=== PATIENT | female | born 1955 | race Caucasian/White ===

== ENCOUNTER → 2017-12-25 | Outpatient (CLI) | payer MEDICARE ==
[~2017-12-25] MED LIST: ACIPHEX20 MG PO; CIMETIDINE400 MG PO; DIFLUNISAL500 MG; IOPAMIDOL 370 MG/ML 200 ML INFUS..BTL INJ ONE; LEVOTHYROXINE50 MCG PO; METOPROLOL PO; OMEPRAZOLE40 MG PO; PRISTIQ50 MG; SODIUM CHLORIDE 0.9% 50ML 50 ML ONE; SYNTHROID75 MCG PO; ULTRAM 50MG50 MG PO; VENLAFAXINE HCL75 MG PO; effexor PO
[2017-12-25 11:22] LABS: BLOOD UREA NITROGEN 17 mg/dL (7-26); BUN/CREATININE RATIO 24 (6-25); EST GLOMERULAR FILTRATION RATE > 60 ML/MIN (60-)
--- NOTE | 2017-12-25 17:28 | Diagnostic Imaging Report ---
PROCEDURE: CT ABDOMEN \T\ PELVIS W/WO CONTRAST TECHNIQUE: The abdomen and pelvis were scanned utilizing a multidetector helical scanner from the diaphragm to the lesser trochanter before and after the IV administration of 100 cc of Isovue 370 and the oral administration of water. Coronal and sagittal multiplanar reformations were obtained. COMPARISON: Patients [facility], CT, CT ABDOMEN/PELVIS WOW, 03/25/2016, 21:36. INDICATIONS: NEOPLASM OF KIDNEY FINDINGS: LOWER THORAX: Stable linear opacities in bilateral lower lobes, consistent with scarring. No pulmonary nodules. HEPATOBILIARY: Likely mild hepatic steatosis. No focal hepatic lesions. No intrahepatic biliary ductal dilatation. Stable mild dilation of the common bile duct, which measures approximately 7 mm at the eamon hepatis. No radiopaque intraluminal filling defects. Cholecystectomy clips. SPLEEN: Stable mild splenomegaly, measuring 13.6 cm in AP diameter. PANCREAS: No focal masses or ductal dilatation. ADRENALS: No adrenal nodules. KIDNEYS/URETERS: No renal or ureteral calculi, hydronephrosis, or obstruction. Stable 1.4 x 1.3 cm hypodense intracortical lesion with thin, linear and punctate peripheral calcification in the posterior interpolar left kidney, without significant enhancement (25, 28, 30, and 32 HU in precontrast, arterial, venous and delayed phases.). Stable 1.5 x 1.5 cm, mostly exophytic, hypodense lesion in the posterior superior to mid left kidney, without significant enhancement (17, 26, 22 and 21 HU on precontrast, arterial, venous and delayed phases). No solid enhancing lesions. PELVIC ORGANS/BLADDER: Bladder is unremarkable, without focal lesions. Uterus is absent. No adnexal masses. PERITONEUM / RETROPERITONEUM: No free air or fluid. LYMPH NODES: No lymphadenopathy. VESSELS: Mild atherosclerotic calcification of the distal abdominal aorta. GI TRACT: No bowel dilation or evidence of obstruction. Stable postoperative changes in the stomach. BONES AND SOFT TISSUES: No aggressive lytic lesions. Stable fusion hardware in the lower lumbosacral spine. Gluteal region. Calcified injection granulomas. Neural stimulator device in the right gluteal region. IMPRESSION: 1. stable 1.4 cm intracortical cystic lesion without significant enhancement in the posterior interpolar left kidney. This may represent a mildly proteinaceous/hemorrhagic cyst. 2. Stable 1.5 cm, mostly exophytic cyst without significant enhancement in the posterior superior to mid left kidney. 3. Likely mild hepatic steatosis. No focal lesions. 4. Stable mild dilation of the common bile duct, likely reflecting post cholecystectomy status. 5. Stable mild splenomegaly. Shmuel Maher M.D. Dictated by: Shmuel Maher M.D. on 12/25/2017 at 14:33 Electronically approved by: Shmuel Maher M.D. on 12/25/2017 at 17:33
== END ==
LOC: CT 10:44
PROVIDERS: ATTEND Urology
DX: D41.00 Neoplasm of uncertain behavior of unspecified kidney (principal)
CPT/HCPCS: 36415; 74178; 82565; 84520; Q9967

== ENCOUNTER → 2018-07-16 | Outpatient (CLI) | payer MEDICARE ==
[~2018-07-16] MED LIST changes: -IOPAMIDOL 370 MG/ML 200 ML INFUS..BTL INJ ONE; -SODIUM CHLORIDE 0.9% 50ML 50 ML ONE
--- NOTE | 2018-07-16 16:31 | Diagnostic Imaging Report ---
EXAM: Renal Ultrasound INDICATION: Renal neoplasm. COMPARISON: CT Abdomen/Pelvis 12/25/2017. TECHNIQUE: Transverse and longitudinal images of the kidneys and bladder were obtained. FINDINGS: Right Kidney: Length: Measures 12.8 x 6.0 x 6.0 cm Appearance: Normal echogenicity. Collecting system: No hydronephrosis Stones: None Cyst/Mass: None Left Kidney: Length: Measures 11.1 x 5.0 x 5.7 cm Appearance: Normal echogenicity. Collecting system: No hydronephrosis Stones: None Cyst/Mass: There are multiple left-sided anechoic, predominately simple appearing renal cysts measuring up to 1.8 cm and 1.9 cm. No evidence of solid mass. Bladder: Unremarkable in appearance. Bilateral ureteral jets are noted. IMPRESSION: No evidence of solid renal mass. Simple appearing left-sided renal cysts. Signed by: Dr. Richard Pedersen MD on 07/16/2018 4:28 PM
== END ==
LOC: US 14:37
PROVIDERS: ATTEND Urology
DX: D41.00 Neoplasm of uncertain behavior of unspecified kidney (principal)
CPT/HCPCS: 76770

== ENCOUNTER 2018-07-28 10:52 | Emergency (ER) | payer MEDICARE ==
[~2018-07-28] VITALS: Ht 162.6 cm; Wt 86.2 kg
--- OUTSIDE RECORDS SUMMARY | 2018-07-28 10:55 | XMS REPORT | Continuity of Care Document ---
Author Author [facility] Interface Address Unknown Phone Unavailable Problems Problem Status Onset Date Classification Date Reported Comments Source PREOP CARDIOVSCLR EXAM Active Problem 07/19/2013 [facility] Abnormal EKG Active Diagnosis 07/19/2013 [facility] Medications Medication Details Route Status Patient Instructions Ordering Provider Order Date Source Pristiq 1 tab(s) orally Active 50 mg orally once a day [facility] omeprazole 1 cap(s) orally Active 40 mg orally once a day [facility] levothyroxine 1 tab(s) orally Active 50 mcg (0.05 mg) orally once a day [facility] Allergies, Adverse Reactions, Alerts Substance Category Reaction Severity Reaction type Status Date Reported Comments Source [place] Adverse Reaction Info Not Available Adverse Reaction Active 07/09/2013 [facility] Immunizations Immunization Date Given Site Status Last Updated Comments Source Results Order Name Results Value Reference Range Date Interpretation Comments Source Vital Signs Vital Sign Value Date Comments Source Diastolic (mm Hg) 64 07/09/2013 [facility] Systolic (mm Hg) 128 07/09/2013 [facility] Weight 196 07/09/2013 [facility] Height 64 07/09/2013 [facility] Encounters Location Location Details Encounter Type Encounter Number Reason For Visit Attending Provider ADM Date DC Date Status Source [facility] Unknown [id number] 07/09/2013 07/09/2013 [facility] FYI- ECHO [id number] 07/09/2013 07/09/2013 [facility]- [facility] [id number] 07/09/2013 07/09/2013 [facility] Procedures Procedure Code Date Perfomer Comments Source
--- OUTSIDE RECORDS SUMMARY | 2018-07-28 10:55 | XMS REPORT ---
Author Author Gem Summers Organization [employer] Address Unknown Phone Unavailable Care Team Providers Care Shallot Cleaner Name Role Phone Gem Summers CP Unavailable Encounters Encounter Location Date [facility]I-E[facility] Jul 09, 2013 Problems Problem Type Condition ICD-9 Code Onset Dates Condition Status Problem PREOP CARDIOVSCLR EXAM V72.81 Active Problem Abnormal EKG 794.31 Active Social History Social History Element Qualifiers Date Reported Caffeine: yes. frequency: 1 cup 1 glass of tea a day Jul 09, 2013 Recreational drug use: no. Jul 09, 2013 Tobacco Use: . Smoking Status: never smoker never smoked Jul 09, 2013 Alcohol: no. Jul 09, 2013 Vital Signs Date/Time: Jul 09, 2013 Blood Pressure Diastolic 64 mm Hg Blood Pressure Systolic 128 mm Hg Weight 196 lbs Height 64 inches Summary Purpose [employer] Submission
--- OUTSIDE RECORDS SUMMARY | 2018-07-28 10:55 | XMS REPORT ---
Author Author [facility] Address Unknown Phone Unavailable Care Team Providers Care Coating Operator Name Role Phone ALEXX CUEVAS Unavailable Unavailable Problems This patient has no known problems. Allergies, Adverse Reactions, Alerts This patient has no known allergies or adverse reactions. Medications This patient has no known medications. Results Test Description Test Time Test Comments Text Results Atomic Results Result Comments US RENAL RETROPERITONEAL COMP 2018-07-16 16:22:00 [place] [address] Patient Name: DEMETRIO CARRINGTON MR #: [id number] : 1955 Age/Sex: 63/F Req #: [id number] Adm Physician: Ordered by: ALEXX CUEVAS MD Report #: [id number] Location: Room/Bed: Procedure: [id number] US/US RENAL RETROPERITONEAL COMP Exam Date: 07/16/18 Exam Time: 1455 REPORT STATUS: Signed EXAM: Renal Ultrasound INDICATION: Renal ne oplasm. COMPARISON: CT Abdomen/Pelvis 12/25/2017. TECHNIQUE: Transverse and longitudinal images of the kidneys and bladder were obtained. FINDINGS: Right Kidney: Length: Measures 12.8 x 6.0 x 6.0 cm Appearance: Normal echogenicity. Collecting system: No hydronephrosis Stones: None Cyst/Mass: None Left Kidney: Length: Measures 11.1 x 5.0 x 5.7 cm Appearance: Normal echogenicity. Collecting system: No hydronephrosis Stones: None Cyst/Mass: There are multiple left-sided anechoic, predominately simple appearing renal cysts measuring up to 1.8 cm and 1.9 cm. No evidence of solid mass. Bladder: Unremarkable in appearance. Bilateral ureteral jets are noted. IMPRESSION: No evidence of solid renal mass. Simple appearing left-sided renal cysts. Signed by: Dr. Delores Baez MD on 07/16/2018 4:28 PM Dictated By: DELORES BAEZ MD 27 Transcribed By: KEI on 07/16/181627 COPY TO: ALEXX CUEVAS MD CT ABDOMEN/PELVIS WOW 2017-12-25 14:33:00 [place] [address] Patient Name: DEMETRIO CARRINGTON MR #: [id number] : 1955 Age/Sex: 62/F Req #: [id number] Adm Physician: Ordered by: ALEXX CUEVAS MD Report #: [id number] Location: CT Room/Bed: Procedure: [id number] CT/CT ABDOMEN/PELVIS WOW Exam Date: 12/25/17 Exam Time: 1200 REPORT STATUS: Signed PROCEDURE: CT ABDOMEN T PELVIS W/WO CONTRAST TECHNIQUE: The abdomen and pelvis were scanned utilizing a multidetector helical scanner from the diaphragm to the lesser trochanter before and after the IV administration of 100 cc of Isovue 370 and the oral administration of water. Coronal and sagittal multiplanar reformations were obtained. COMPARISON: [facility], CT, CT ABDOMEN/PELVIS WOW, 03/25/2016, 21:36. INDICATIONS: NEOPLASM OF KIDNEY FINDINGS: LOWER THORAX: Stable linear opacities in bilateral lower lobes, consistent with scarring. No pulmonary nodules. HEPATOBILIARY: Likely mild hepatic steatosis. No focal hepatic lesions. No intrahepatic biliary ductal dilatation. Stable mild dilation of the common bile duct, which measures approximately 7 mm at the eamon hepatis. No radiopaque intraluminal filling defects. Cholecystectomy clips. SPLEEN: Stable mild splenomegaly, measuring 13.6 cm in AP diameter. PANCREAS: No focal masses or ductal dilatation. ADRENALS: No adrenal nodules. KIDNEYS/URETERS: No renal or ureteral calculi, hydronephrosis, or obstruction. Stable 1.4 x 1.3 cm hypodense intracortical lesion with thin, linear and punctate peripheral calcification in the posterior interpolar left kidney, without significant enhancement (25, 28, 30, and 32 HU in precontrast, arterial, venous and delayed phases.). Stable 1.5 x 1.5 cm, mostly exophytic, hypodense lesion in the posterior superior to mid left kidney, without significant enhancement (17, 26, 22 and 21 HU on precontrast, arterial, venous and delayed phases). No solid enhancing lesions. PELVIC ORGANS/BLADDER: Bladder is unremarkable, without focal lesions. Uterus is absent. No adnexal masses. PERITONEUM / RETROPERITONEUM: No free air or f luid. LYMPH NODES: No lymphadenopathy. VESSELS: Mild atherosclerotic calcification of the distal abdominal aorta. GI TRACT: No bowel dilation or evidence of obstruction. Stable postoperative changes in the stomach. BONES AND SOFT TISSUES: No aggressive lytic lesions. Stable fusion hardware in the lower lumbosacral spine. Gluteal region. Calcified injection granulomas. Neural stimulator device in the right gluteal region. IMPRESSION: 1. stable 1.4 cm intracortical cystic lesion without significant enhancement in the posterior interpolar left kidney. This may represent a mildly proteinaceous/hemorrhagic cyst. 2. Stable 1.5 cm, mostly exophytic cyst without significant enhancement in the posterior superior to mid left kidney. 3. Likely mild hepatic steatosis. No focal lesions. 4. Stable mild dilation of the common bile duct, likely reflecting post cholecystectomy status. 5. Stable mild splenomegaly. Corrina Maher M.D. Dictated by: Corrina Maher M.D. on 12/25/2017 at 14:33 Electronically approved by: Corrina Maher M.D. on 12/25/2017 at 17:33 Dictated By: CORRINA MAHER MD 1733 Transcribed By: MATTHEW on 12/25/17 1733 COPY TO: ALEXX CUEVAS MD
--- OUTSIDE RECORDS SUMMARY | 2018-07-28 10:55 | XMS REPORT ---
Author Author Gem Summers Organization [employer] Address Unknown Phone Unavailable Care Team Providers Care Primer Waterproofing Machine Operator Name Role Phone Gem Summers CP Unavailable Allergies, Adverse Reactions, Alerts Substance Reaction Event Type [place] Info Not Available Non Drug Allergy Encounters Encounter Location Date I-E[facility] Jul 09, 2013 Unknown [facility] Jul 09, 2013 Problems Problem Type Condition ICD-9 Code Onset Dates Condition Status Problem PREOP CARDIOVSCLR EXAM V72.81 Active Assessment Abnormal EKG 794.31 Active Problem Abnormal EKG 794.31 Active Assessment PREOP CARDIOVSCLR EXAM V72.81 Active Medications Medication Code System Code Instructions Start Date End Date Status Dosage Pristiq MULTUM 171070 50 mg orally once a day Active 1 tab(s) omeprazole MULTUM 26764 40 mg orally once a day Active 1 cap(s) levothyroxine MULTUM 84523 50 mcg (0.05 mg) orally once a day Active 1 tab(s) Social History Social History Element Qualifiers Date [...]
[2018-07-28] MEDS ORDERED: FAMOTIDINE 20 MG/2 ML VIAL IV STA (11:27)
[2018-07-28] MEDS ORDERED: KETOROLAC TROMETHAMINE 30 MG/ML VIAL IV STA (11:27)
[2018-07-28] MEDS ORDERED: ASPIRIN 325 MG TAB PO ONE (11:30)
--- NOTE | 2018-07-28 12:03 | NUR ---
WARM BLANKETS AND PILLOW. UPDATED PLAN OF CARE.
--- NOTE | 2018-07-28 13:17 | Diagnostic Imaging Report ---
EXAM: CTA of the Thoracic Aorta WITH Contrast INDICATION: Chest pain. Shortness of breath. Acute pain between the shoulder blades. COMPARISON: None. TECHNIQUE: Multi-detector CT technology was employed. CTA Gated axial imaging of the chest was performed after the administration of IV contrast. IV CONTRAST: 95 mL Isovue 370 ORAL CONTRAST: None COMPLICATIONS: None RADIATION DOSE: Total DLP: 1499.88 mGy*cm Estimated effective dose: (DLP x 0.015 x size factor) mSv CTDIvol has been reviewed. It is below the limits set by the Radiation Protocol Committee (RPC). For optimization of anatomic evaluation, multiplanar reconstruction, maximum intensity projections, and advanced 3-D off-line postprocessing were performed on a dedicated stand-alone workstation under the direct supervision of the interpreting physician. FINDINGS: Potential study limitations: None. LINES/ TUBES: None. VASCULAR WITH ADVANCED 3-D OFF-LINE POSTPROCESSING: Aortic valve morphology is trileaflet and contains no calcifications. The thoracic aorta is normal in course, caliber, and contour. There is no acute aortic pathology, such as dissection, intramural hematoma, or contained rupture. Aortic plaques: None, mild, moderate, severe. The arch vessel branching pattern is conventional. All of the arch branch vessels appear widely patent in their proximal portions. Electronic Pagination System Operator dimensions of the thoracic aorta are as follows: 2.1 cm at the aortic annulus 3.4 cm at the sinuses of Valsalva (the sinotubular junction is preserved) 3.3 cm at the mid ascending aorta 2.9 cm at the distal ascending aorta 2.5 cm at the mid transverse arch 2.7 cm at the proximal descending thoracic aorta 2.4 cm at the diaphragmatic hiatus. LUNGS AND AIRWAYS: Mild bronchial wall thickening. While nonspecific glass opacities. Atelectasis in the lingula. Airways are patent. PLEURA: The pleural spaces are clear.. HEART AND MEDIASTINUM: The thyroid gland is normal. No mediastinal, hilar or axillary lymphadenopathy. The main pulmonary artery is normal in size. The cardiac chambers demonstrate normal atrioventricular and ventriculoarterial concordance, and systemic and pulmonary venous return. The cardiac chambers are normal in size. The coronary arteries have normal origins and courses. There are no distinct coronary calcifications identified, though this study was not optimized for coronary artery evaluation. There is no pericardial effusion. LIMITED ABDOMEN: Cholecystectomy clips. Postoperative changes of gastric sleeve. Small sliding hiatal hernia(spleen is mildly enlarged measuring 13.3 cm in AP dimension. Retroaortic renal vein. 1.6 cm simple cyst in the posterior superior pole of the left kidney. 1.3 cm simple cyst posterior interpolar region in left kidney. BONES: Spinal stimulator wire entering T8-T9 vertebral level with leads overlying T7-T8 vertebral bodies. Posterior disc osteophyte at T12-L1. Posterior fusion from L4 and L5. IMPRESSION: 1. Normal thoracic aorta. There is no acute aortic pathology. 2. Mild bronchial wall thickening and mild diffuse groundglass opacities, likely atypical infection. 3. Postoperative changes of gastric sleeve surgery with small sliding hiatal hernia and mild distal esophageal wall thickening. Signed by: Dr. Slava Ybarra M.D. on 07/28/2018 1:14 PM
--- NOTE | 2018-07-28 13:46 | NUR ---
no pain. repeat ekg per md. pt with electrical interferrence from spinal stimulator. unable to turn off for testing. md notified. repeat trop running.
== END 2018-07-28 13:59 | disposition home or self-care (01) ==
LOC: FSED 10:52
DX: R07.89 Other chest pain (principal); K21.9 Gastro-esophageal reflux disease without esophagitis; M54.5 Low back pain; G89.29 Other chronic pain; Z98.84 Bariatric surgery status
CPT/HCPCS: 71275; 80053; 82553; 84484; 85025; 99284; J1885

== ENCOUNTER → 2019-02-25 | Outpatient (CLI) | payer MEDICARE ==
--- NOTE | 2019-02-25 19:49 | Diagnostic Imaging Report ---
Parathyroid Scan with SPECT Reason for exam: Hyperparathyroidism Radiopharmaceutical: Tc-99m sestamibi 22.9 mCi After intravenous administration of the radiopharmaceutical, immediate and 2-hour planar images of the neck and upper chest were obtained. Tomographic images of the neck and upper chest were also obtained following the initial planar images. Distribution of tracer activity appears physiologic throughout the neck and upper chest on the planar and tomographic images. No focal areas of increased tracer accumulation are identified. On the delayed planar images, washout of tracer from the thyroid is complete with no focal areas of persistent tracer activity. Impression: No enlarged hypermetabolic parathyroid glands are identified. Signed by: Dr. Jaja Hamilton M.D. on 02/25/2019 7:45 PM
== END ==
LOC: NM 10:06
PROVIDERS: ATTEND Family Medicine
DX: E21.3 Hyperparathyroidism, unspecified (principal)
CPT/HCPCS: 78071; A9500

== ENCOUNTER 2020-01-03 10:39 | Observation (INO) | payer MEDICARE, OTHER ==
[~2020-01-03] VITALS: Ht 162.6 cm; Wt 74.8 kg
[~2020-01-03 10:39] MED LIST changes: +CITALOPRAM HBR20 MG PO; +CLARITHROMYCIN500 MG PO; +CYCLOBENZAPRINE10 MG PO
--- NOTE | 2020-01-03 11:43 | Diagnostic Imaging Report ---
EXAMINATION: CXR 1 W - HOP INDICATION: pain COMPARISON: Chest x-ray dated 06/21/2019. CT chest dated 06/30/2019. FINDINGS: AP view TUBES and LINES: Spine stimulator distal lead in unchanged position.. LUNGS/PLEURA: Lungs are well inflated. There is no evidence of pneumonia or pulmonary edema.. There is no pleural effusion or pneumothorax. HEART AND MEDIASTINUM: The cardiomediastinal silhouette is unremarkable. BONES AND SOFT TISSUES: No acute osseous lesion. Soft tissues are unremarkable. UPPER ABDOMEN: No free air under the diaphragm. IMPRESSION: No acute thoracic abnormality. Signed by: Noe Contreras MD on 01/03/2020 11:40 AM
[2020-01-03] MEDS ORDERED: ASPIRIN 325 MG TAB PO ONE (12:00)
[2020-01-03] MEDS ORDERED: ASPIRIN 81 MG CHEW TAB PO ONE (12:00)
[2020-01-03] MEDS ORDERED: ONDANSETRON HCL INJ 2MG/ML 2ML 2 MG/ML VIAL IV STA (12:01)
--- NOTE | 2020-01-03 12:08 | Emergency Department Note ---
History of Present Illnes History of Present Illness Chief Complaint: Chest Pain History of Present Illness This is a 64 year old female Chief Complaint Comment chest pressure f or 2 days radiating to back. with some SOB. . Historian: Patient Arrival Mode: Car Onset (how long ago): day(s) (1) Location: CHEST Quality: DULL Radiation: Denies non-radiation, Denies back, Denies neck, Denies extremity, Denies abdomen, Denies periumbilical, Denies flank, Denies proximal, Denies distal, Denies other Severity: mild Onset quality: gradual Duration (how long): day(s) (1) Timing of current episode: intermittent Progression: waxing and waning Chronicity: new Context: Denies recent illness, Denies recent surgery, Denies recent immobilization, Denies recent travel, Denies trauma/injury, Denies new medications, Denies hx of DVT/PE, Denies non-compliance w/ medications, Denies other Relieving factors: none Exacerbating factors: none Associated symptoms: Reports chest pain; Denies denies other symptoms, Denies confusion, Denies cough, Denies diaphoresis, Denies fever/chills, Denies headaches, Denies loss of appetite, Denies malaise, Denies nausea/vomiting, Denies rash, Denies seizure, Denies shortness of breath, Denies syncope, Denies weakness, Denies other Treatments prior to arrival: none Past Medical/Family History Physician Review I have reviewed the patient's past medical and family history. Any updates have been documented here. Past Medical History Recent Fever: No Clinical Suspicion of Infectio: No New/Unexplained Change in Ment: No Past Medical History: Hypothyroidism, GERD Other Medical History: BACK STIMULATOR Past Surgical History: Cholecysctectomy, Appendectomy, Back Surgery Other Surgery: LAP BAND BACK SX (X 4) spinal stimulator Social History Smoking Cessation: Never Smoker Counseling Performed: No Alcohol Use: Occasional Any Illegal Drug Use: No Physically hurt or threatened: No Other Last Tetanus: UTD Any Pre-Existing Lines (PICC,: No Review of Systems Review of Systems Constitutional: Reports no symptoms EENTM: Reports no symptoms Cardiovascular: Reports as per HPI Respiratory: Reports no symptoms Gastrointestinal: Reports no symptoms Genitourinary: Reports no symptoms Musculoskeletal: Reports no symptoms Integumentary: Reports no symptoms Neurological: Reports no symptoms Psychological: Reports no symptoms Endocrine: Reports no symptoms Hematological/Lymphatic: Reports no symptoms Physical Exam Related Data Allergies: Coded Allergies: metoclopramide (Verified Allergy, Mild, 11/17/10) Triage Vital Signs Vital Signs Date Time Temp Pulse Resp B/P (MAP) Pulse Ox O2 Delivery O2 Flow Rate FiO2 01/03/20 10:40 97.8 104 18 144/59 100 Vital signs reviewed: Yes Physical Exam CONSTITUTIONAL Constitutional: Present well-developed, Present well-nourished HENT HENT: Present normocephalic, Present atraumatic, Present oropharynx lito ar/moist, Present nose normal HENT L/R: Present left ext ear normal, Present right ext ear normal EYES Eyes: Reports PERRL, Reports conjunctivae normal NECK Neck: Present ROM normal PULMONARY Pulmonary: Present effort normal, Present breath sounds normal CARDIOVASCULAR Cardiovascular: Present regular rhythm, Present heart sounds normal, Present capillary refill normal, Present normal rate GASTROINTESTINAL Abdominal: Present soft, Present nontender, Present bowel sounds normal GENITOURINARY Genitourinary: Present exam deferred SKIN Skin: Present warm, Present dry MUSCULOSKELETAL Musculoskeletal: Present ROM normal NEUROLOGICAL Neurological: Present alert, Present oriented x 3, Present no gross motor or sensory deficits PSYCHOLOGICAL Psychological: Present mood/affect normal, Present judgement normal Results Laboratory Lab results reviewed: Yes Imaging Imaging results reviewed: Yes Procedures 12 Lead ECG Interpretation ECG Interpretation : ECG: ECG 1 Party Plan Selling Distributor: Interpreted by ED physician Date: Jan 03, 2020 Time: 10:41 Rhythm: sinus rhythm Rate: normal BPM: 66 QRS axis: normal ST segments normal: Yes T wave inversion: V3, V4, V6 Clinical Impression: abnormal ECG Assessment & Plan Medical Decision Making MDM CHEST PAIN GERD ANGINA Reassessment Reassessment time: 12:07 Reassessment BETTER Assessment & Plan Final Impression: (1) Chest pain (2) Precordial chest pain Depart Disposition: ADMITTED Last Vital Signs Date Time Temp Pulse Resp B/P (MAP) Pulse Ox O2 Delivery O2 Flow Rate FiO2 01/03/20 10:40 97.8 104 18 144/59 100 Home Meds Reported Medications Cyclobenzaprine Hcl (CYCLOBENZAPRINE HCL) 10 Mg Tablet, 10 MG PO HS, TAB 06/27/19 Citalopram Hydrobromide (CITALOPRAM HBR) 20 Mg Tablet, 20 MG PO DAILY, TAB 06/27/19 Clarithromycin (CLARITHROMYCIN) 500 Mg Tablet, 500 MG PO Q12H, #60 TAB 06/27/19 Levothyroxine Sodium (LEVOTHYROXINE SODIUM) 50 Mcg Tablet, 50 MCG PO DAILY, #30 TAB 03/29/15 Omeprazole (OMEPRAZOLE) 40 Mg Capsule.dr, 40 MG PO BID 03/29/15 Medications in the ED Aspirin 325 mg ONCE ONCE PO ; Start 01/03/20 at 12:00; Stop 01/03/20 at 12:01; Status DC Aspirin 325 mg QAM PO ; Start 01/04/20 at 09:00; Stop 02/03/20 at 08:59; Status UNV Ondansetron HCl 4 mg Q4H PRN IV NAUSEA AND VOMITING; Start 01/03/20 at 12:00; Stop 02/02/20 at 11:59; Status UNV Aspirin 81 mg PRN ONCE PO ; Start 01/03/20 at 12:00; Stop 01/03/20 at 12:01; Status UNV Famotidine 20 mg BID ONCE PO ; Start 01/03/20 at 17:00; Stop 01/03/20 at 17:01; Status UNV EVERARDO CHOUDHARY MD Jan 03, 2020 12:08
[2020-01-03] MEDS ORDERED: MORPHINE SULFATE INJ 4 MG/ML INJ 1ML ONE (12:10)
[2020-01-03] MEDS ORDERED: MORPHINE SULFATE 5 MG/ML VIAL IV ONE (12:15)
--- NOTE | 2020-01-03 12:20 | NUR ---
[facility] NOTIFIED OF NEED FOR TRANSFER.
[2020-01-03] MEDS ORDERED: MORPHINE SULFATE 2 MG/ML SYR 1ML IV ONE (12:45)
[2020-01-03] MEDS ORDERED: FAMOTIDINE 20 MG TAB PO ONE ×2 (13:00→17:00)
[2020-01-03] MEDS ORDERED: ASPIRIN 325 MG TAB ONE (13:28)
[2020-01-03 13:47] VITALS: BP 129/61
--- NOTE | 2020-01-03 14:10 | NUR ---
pt resting in bed, no c/o pain at time
[2020-01-03] MEDS: ASPIRIN 81 MG CHEW TAB PO SCH (15:00)
[2020-01-03] MEDS: ONDANSETRON HCL INJ 2MG/ML 2ML 2 MG/ML VIAL IV PRN ×2 (15:15→20:06)
[2020-01-03] MEDS ORDERED: ATORVASTATIN 20 MG TAB PO SCH (16:00)
[2020-01-03 16:18] VITALS: BP 115/59
[2020-01-03] MEDS ORDERED: ENOXAPARIN SOD INJ 40 MG/0.4 ML SYR SC SCH (17:00)
[2020-01-03] MEDS: METOPROLOL SUCCINATE 25 MG TAB XL PO SCH (17:01)
--- NOTE | 2020-01-03 19:38 | NUR ---
NEW ORDERS RECEIVED FROM DR. CANO FOR MORPHINE IV Q3H PRN AND TO CONTINUE HOME MEDS.
[2020-01-03] MEDS ORDERED: MORPHINE SULFATE 2 MG/ML SYR 1ML IV PRN (19:45)
[2020-01-03 20:00] VITALS: BP 107/84
[2020-01-03 20:22] LABS: CREATINE KINASE 24 IU/L (29-168)
[2020-01-03] MEDS ORDERED: CYCLOBENZAPRINE HCL 10 MG TAB PO SCH (21:00)
[2020-01-03 21:13] VITALS: BP 107/84
[2020-01-04] VITALS: BP 111/64
--- NOTE | 2020-01-04 00:38 | Consultation ---
DATE OF CONSULTATION: Cardiology Consultation CONSULTING PHYSICIAN: Lobo Casarez MD, Interventional Cardiology. REASON FOR CONSULTATION: Chest pain. HISTORY OF PRESENT ILLNESS: Ms. Albert is a 64-year-old woman with a history of bronchitis and morbid obesity. The patient had a recent outpatient evaluation for EKG with nonspecific repolarization abnormalities, revealed preserved left ventricular systolic function and echocardiogram with no significant valvular abnormalities and a reassuring stress myocardial perfusion. She presents with episodes of epigastric and lower midsternal chest discomfort, described as pressure, more intense than her usual heartburn following meals, unaffected by exertion, changes in position, inspiration, and not clearly related to meals, lasting hours, for which she went to the ER. Symptoms are partially improved. Her initial troponin is negative. Additional troponins are scheduled and pending. EKG observed to have sinus rhythm with T-wave inversions in anterolateral leads, stable compared to previous EKGs on file from clinic as well as in 2019 hospital EKG. She has no complaints at this time. REVIEW OF SYSTEMS: Full system review negative except for as noted above. ALLERGIES: TO METOCLOPRAMIDE. PAST MEDICAL HISTORY: As per HPI. SOCIAL HISTORY: No active smoking, alcohol, or drugs. FAMILY HISTORY: Noncontributory. PHYSICAL EXAMINATION: VITAL SIGNS: Temperature 98.4, heart rate 70, blood pressure 129/61, respiratory rate 18, O2 saturation 100%, BMI 28. GENERAL: No acute distress, alert. NECK: No JVD. CHEST: Clear to auscultation. CARDIOVASCULAR: Regular rate and rhythm. Normal S1 and S2. No S3. No S4. No murmurs. No rubs. ABDOMEN: Soft. Bowel sounds positive. EXTREMITIES: No edema. CARDIOVASCULAR MEDICATIONS: Reviewed. LABORATORY DATA: White blood cells 5.7, hemoglobin 13.4, and platelets 192. Troponin I less than 0.05, done at 11 o'clock. Sodium 141, potassium 3.9, chloride 100, bicarbonate 30, BUN 15, creatinine 1.1, glucose 85, AST 26, ALT 16, total bilirubin 0.5, total protein 7, albumin 4.1, alkaline phosphatase 90. ASSESSMENT AND PLAN: Atypical chest discomfort and abnormal EKG. Recommend continued cardiac biomarkers if ruled out and symptom improves. Okay to discharge with outpatient followup in 2 weeks. MD RUBIO Thomas/MASOODL /[id number]
[2020-01-04 04:00] VITALS: BP 107/59
[2020-01-04 06:25] LABS: BASOPHILS % 0.5 % (0.0-1.0); EOSINOPHILS # (AUTO) 0.2 (0.0-0.4); EOSINOPHILS % 3.8 % (0.0-6.0); HEMATOCRIT 38.8 % (34.2-44.1); HEMOGLOBIN 12.6 g/dL (12.0-16.0); LYMPHOCYTES % 34.3 % (18.0-39.1); MEAN CORPUSCULAR HEMOGLOBIN 31.1 pg (28-32); MEAN CORPUSCULAR HGB CONC 32.5 g/dL (31-35); MEAN CORPUSCULAR VOLUME 95.8 fL (81-99); MONOCYTES # (AUTO) 0.3 (0.2-0.8); MONOCYTES % 5.7 % (4.4-11.3); NEUTROPHILS # (AUTO) 3.2 (2.1-6.9); NEUTROPHILS % 55.4 % (38.7-80.0); PLATELET COUNT 191 x10e3/uL (140-360); RED BLOOD COUNT 4.05 x10e6/uL (3.6-5.1); RED CELL DISTRIBUTION WIDTH 12.9 % (11.7-14.4)
[2020-01-04 06:50] LABS: ALBUMIN 3.4 g/dL (3.5-5.0); ALBUMIN/GLOBULIN RATIO 1.3 (0.8-2.0); CALCIUM 9.3 mg/dL (8.4-10.2); CREATININE, SERUM 0.95 mg/dL (0.57-1.11)
[2020-01-04 07:11] LABS: CREATINE KINASE 20 IU/L (29-168)
[2020-01-04 08:00] VITALS: BP 97/52
--- NOTE | 2020-01-04 08:09 | Progress Note ---
DATE: SUBJECTIVE: The patient did well overnight with no new complaints. No further chest pain. OBJECTIVE: VITAL SIGNS: Temperature 98.0, pulse 67, blood pressure 107/84, sats 97% on room air. GENERAL: No apparent distress. LUNGS: Clear to auscultation bilaterally. CARDIOVASCULAR: Regular rate and rhythm. ABDOMEN: Soft. EXTREMITIES: No clubbing or cyanosis. NEUROLOGIC: Nonfocal. ASSESSMENT AND PLAN: 1. Chest pain. We will rule out myocardial infarction and continue with current care per Dr. Casarez. 2. Anxiety disorder. Continue with her citalopram. 3. Hyperlipidemia. Continue with her atorvastatin. 4. Hypertension. Continue with her blood pressure medication. 5. Hypothyroidism. Continue with her thyroid medication. 6. Reflux disease. Continue with her Protonix b.i.d. Please see hospital chart for full details. MD CARLYLE Canales/KEIRY /[id number]
[2020-01-04] MEDS: METOPROLOL SUCCINATE 25 MG TAB XL PO SCH (08:11)
[2020-01-04] MEDS: ASPIRIN 81 MG CHEW TAB PO SCH (08:11)
--- NOTE | 2020-01-04 08:34 | Discharge Summary ---
DISCHARGE DIAGNOSES: 1. Chest pain rule out myocardial infarction. 2. Hypertension. 3. Anxiety. 4. Hyperlipidemia. 5. Hypothyroidism. 6. Gastroesophageal reflux disease. HISTORY OF PRESENT ILLNESS AND HOSPITAL COURSE: The patient is a lady, who presented with some chest pain, very atypical, was brought in and ruled out for PA by serial enzymes. Telemetry was unremarkable. EKG was unremarkable. She was seen by her auto heater mechanic, Dr. Casarez, who cleared her for discharge, which the patient really wanted to go home, so she was discharged home with continuation of her home medications and to follow up with Dr. Elmore in 1 to 2 weeks as well as Dr. Casarez in 2 weeks and return to the emergency room if she gets any worse. Please see hospital chart for full details. MD CARLYLE Canales/KEIRY /[id number]
--- NOTE | 2020-01-04 08:55 | NUR ---
Received discharge orders from at 0800. Patient given discharge instructions to follow up with PCP and biometrics specialist within 1-2 weeks and continue home medications. Patient verbalized understanding and had no further questions. Patient's IV was removed and covered with a C/D/I dressing at 0820. Patient was wheeled to her 's car at 0837. No issues or complaints.
[2020-01-04] MEDS ORDERED: PANTOPRAZOLE SOD 40 MG TABEC PO SCH (09:00)
[2020-01-04] MEDS ORDERED: LEVOTHYROXINE SODIUM 50 MCG TAB PO SCH (09:00)
[2020-01-04] MEDS ORDERED: ASPIRIN 325 MG TAB EC PO SCH (09:00)
[2020-01-04] MEDS ORDERED: CITALOPRAM HYDROBROMIDE 20 MG TAB PO SCH (09:00)
== END 2020-01-04 08:37 | disposition home or self-care (01) ==
LOC: FSED 11:10 → ERHOLD 11:57 → MED/SURG 13:36
PROVIDERS: ADMIT Family Medicine; ATTEND Family Medicine
DX: R07.89 Other chest pain (principal); I10 Essential (primary) hypertension; Z11.59 Encounter for screening for other viral diseases; F41.9 Anxiety disorder, unspecified; E78.5 Hyperlipidemia, unspecified; E03.9 Hypothyroidism, unspecified; K21.9 Gastro-esophageal reflux disease without esophagitis
CPT/HCPCS: 36415 ×2; 71045; 80053 ×2; 82550 ×2; 82553 ×2; 84484 ×2; 85025 ×2; 99284; G0378 ×2; J1650; J2270 ×2; J2405; S0164; U0002

== ENCOUNTER → 2020-03-15 | Outpatient (CLI) | payer MEDICARE, OTHER | LOC: MAMMO 12:49 | PROVIDERS: ATTEND Family Medicine | DX: Z12.31 Encounter for screening mammogram for malignant neoplasm of breast (principal) | CPT/HCPCS: 77067 ==

== ENCOUNTER 2021-08-29 18:47 | Emergency (ER) | payer MEDICARE ==
[~2021-08-29] VITALS: Ht 162.6 cm; Wt 74.4 kg
[2021-08-29] MEDS ORDERED: KETOROLAC TROMETHAMINE 60 MG/2 ML VIAL IM ONE (19:45)
[2021-08-29] MEDS ORDERED: PREDNISONE 20 MG TAB PO ONE (19:45)
[2021-08-29] MEDS ORDERED: PREDNISONE50 MG PO (19:49)
[2021-08-29] MEDS ORDERED: PREDNISONE 20 MG TAB ONE (19:49)
[2021-08-29 19:56] VITALS: BP 135/61
== END 2021-08-29 19:56 | disposition home or self-care (01) ==
LOC: FSED 19:12
DX: M54.12 Radiculopathy, cervical region (principal); M47.892 Other spondylosis, cervical region; M54.6 Pain in thoracic spine; M54.50 Low back pain, unspecified; G89.29 Other chronic pain; E78.5 Hyperlipidemia, unspecified; R94.31 Abnormal electrocardiogram [ECG] [EKG]; Z98.84 Bariatric surgery status
CPT/HCPCS: 93005; 96372; 99282; J1885; J7512

== ENCOUNTER 2022-10-02 19:45 | Emergency (ER) | payer MEDICARE ==
[~2022-10-02] VITALS: Ht 162.6 cm; Wt 74.4 kg
[~2022-10-02 19:45] MED LIST changes: +PREDNISONE50 MG PO
[2022-10-02 20:44] LABS: BASOPHILS # (AUTO) 0.1 (0.0-0.1); BASOPHILS % 0.9 % (0.0-1.0); EOSINOPHILS # (AUTO) 0.1 (0.0-0.4); EOSINOPHILS % 1.4 % (0.0-6.0); HEMATOCRIT 38.5 % (34.2-44.1); HEMOGLOBIN 12.5 g/dL (12.0-16.0); LYMPHOCYTES # (AUTO) 1.6 (1.0-3.2); LYMPHOCYTES % 27.8 % (18.0-39.1); MEAN CORPUSCULAR HEMOGLOBIN 30.7 pg (28-32); MEAN CORPUSCULAR HGB CONC 32.5 g/dL (31-35); MEAN CORPUSCULAR VOLUME 94.6 fL (81-99); MONOCYTES # (AUTO) 0.3 (0.2-0.8); MONOCYTES % 4.8 % (4.4-11.3); NEUTROPHILS # (AUTO) 3.8 (2.1-6.9); NEUTROPHILS % 64.8 % (38.7-80.0); PLATELET COUNT 221 x10e3/uL (140-360); RED BLOOD COUNT 4.07 x10e6/uL (3.6-5.1); RED CELL DISTRIBUTION WIDTH 12.4 % (11.7-14.4)
[2022-10-02 20:58] LABS: AMPHETAMINES SCREEN,URINE NEGATIVE (NEGATIVE); BENZODIAZEPINES SCREEN,URINE NEGATIVE (NEGATIVE); PHENCYCLIDINE SCREEN,URINE NEGATIVE (NEGATIVE)
[2022-10-02 21:10] LABS: ALANINE AMINOTRANSFERASE 9 IU/L (0-55); ALBUMIN 3.9 g/dL (3.5-5.0); ALBUMIN/GLOBULIN RATIO 1.3 (0.8-2.0); ALKALINE PHOSPHATASE 100 IU/L (40-150); ANION GAP 14.6 mmol/L (8-16); BLOOD UREA NITROGEN 17 mg/dL (7-26); BUN/CREATININE RATIO 19 (6-25); CARBON DIOXIDE 25 mmol/L (22-29); CHLORIDE 105 mmol/L (98-107); CREATINE KINASE 47 IU/L (29-168); CREATININE, SERUM 0.89 mg/dL (0.57-1.11); GLUCOSE 97 mg/dL (74-118); POTASSIUM 3.6 mmol/L (3.5-5.1); SODIUM 141 mmol/L (136-145)
[2022-10-02] MEDS ORDERED: LEVETIRACETAM 500 MG TAB PO STA ×2 (21:20→21:31)
[2022-10-02] MEDS ORDERED: LEVETIRACETAM 500 MG TAB ONE (21:31)
[2022-10-02] MEDS ORDERED: KEPPRA500 MG PO (21:36)
== END 2022-10-02 22:25 | disposition home or self-care (01) ==
LOC: ER 20:06
DX: R56.9 Unspecified convulsions (principal); G93.9 Disorder of brain, unspecified; E78.5 Hyperlipidemia, unspecified; R94.31 Abnormal electrocardiogram [ECG] [EKG]
CPT/HCPCS: 36415; 70450; 80053; 80307; 82550; 82553; 84484; 85025; 93005; 99284